=== PATIENT | female | born 1935 | race Caucasian/White ===

== ENCOUNTER 2018-01-05 21:56 | Emergency (ER) | payer OTHER ==
[2018-01-05 22:14] VITALS: BMI 25.4
--- NOTE | 2018-01-05 22:18 | PDOC ---
Attending Attestation - Resident Resident Name: Baldemar Shrestha - ED Attending Attestation I have performed the following: I have examined & evaluated the patient, The case was reviewed & discussed with the resident, I agree w/resident's findings & plan - HPI HPI: 01/05/18 22:51 The patient is a 82 year old female, with a significant past medical history of HTN, who presents to the emergency department s/p fall with, altered mental status. As per patients , he was in the basement when he heard his fall. Upon his arrival, she was altered and had a laceration to the forehead. He is unaware what she was doing at the time. The history is limited due to the patients clinical condition. Allergies: NKA - Physicial Exam PE: 01/05/18 22:56 +GENERAL: Awake, alert, and fully oriented, in no acute distress. Incontinent at bedside. +HEAD: Laceration to the forehead. +EYES: Pupils nonreactive. Blinking. NECK: Normal ROM, supple, no lymphadenopathy, JVD, or masses LUNGS: Breath sounds equal, clear to auscultation bilaterally. No wheezes, and no crackles HEART: Regular rate and rhythm, normal S1 and S2, no murmurs, rubs or gallops +ABDOMEN: Flat. Soft, nontender, normoactive bowel sounds. No guarding, no rebound. No masses EXTREMITIES: No edema. No clubbing or cyanosis. No cords, erythema, or tenderness +NEUROLOGICAL: Altered. ANO x0. - Medical Decision Making 01/05/18 23:[address] Tom Duarte, neurosurgeon electrical contacts adjuster, awaiting call back. 01/05/18 23:[address] Duarte, case discussed with resident. 11:20pm Call placed to [facility] for transfer. <Belle Barraza - Last Filed: 01/05/18 23:24> - Medical Decision Making 01/05/18 22:47 Pt comes with fall and altered MS. was in the basement and he heard the thud. Pt was slurring her speech. Pt had a seizure in the ER, sent directly for head CT, and found to have a posterior hemorrhage. EXAM: CT HEAD CT (STROKE) HISTORY: Stroke protocol COMPARISON: None. FINDINGS: Study is positive for intracranial bleed. There is a 3.9 x 2.8 x 1.9 cm hematoma in the right cerebellum with some surrounding edema. There is extension into the fourth ventricle cerebral aqueduct, third ventricle, and lateral ventricles. There is some extension into the posterior fossa subarachnoid space. There is some effacement of the extra-axial CSF spaces in the posterior fossa. Ventricles are mildly distended. There is no calvarial fracture. Paranasal sinuses appear normal IMPRESSION: Hematoma in the right posterior fossa with intraventricular and subarachnoid extension Individualized dose optimization techniques were used for this CT. THIS DOCUMENT HAS BEEN ELECTRONICALLY SIGNED 01/05/18 23:18 Our neurosurgeon is aware and he is requesting that we send him to [facility]. I called the transfer ctr and am awaiting the neuro electrical contacts adjuster doc. 01/05/18 23:44 [facility] neurologist on stroke call agrees to the transfer. I spoke to neurologist Dr. Vuong I am awaiting a call back from the [facility] ER attending. 01/05/18 23:47 Pt will be transferred to [facility] ER. 01/05/18 23:47 Nicardipine 2.5mg/hr drip is running to keep pt's systolic BP in the 140-150 range. 01/06/18 00:12 Dr. Ramsay is aware of the patient. He is the [place] attending. <Antoinette Jacome - Last Filed: 01/06/18 00:13> Attestations - Attestations 01/05/18 22:51 Documentation prepared by Belle Barraza, acting as certified medical coder for Antoinette Jacome MD. <Belle Barraza - Last Filed: 01/05/18 23:24>
--- NOTE | 2018-01-05 22:33 | PDOC ---
History of Present Illness - General Chief Complaint: Laceration Stated Complaint: FALL Time Seen by Provider: 01/05/18 22:00 - History of Present Illness Initial Comments: 01/06/18 00:41 Pt is an 82 y/o lady with a significant past medical history of chronic hypertension. Pt presents to [facility] s/p fall this afternoon in her home. Pt was stated to be cleaning her home when her who was in the basement heard a loud sound. Pt's states he saw his spouse bleeding profusely from her forehead s/p fall. After the fall, pt's endorses that pt was having slurred speech and was incoherent. Pt's states pt's BP was 170's systolic and 90's diastolic. Pt was subsequently BIBA to [facility]. Son was called on phone as well to help assist in explaining situation. Family denies any previous episodes of similar events. Past History - Past Medical History Allergies/Adverse Reactions: Allergies Allergy/AdvReac Type Severity Reaction Status Date / Time No Known Allergies Allergy Verified 01/05/18 22:11 COPD: No HTN: Yes - Suicide/Smoking/Psychosocial Hx Smoking History: Never smoked Have you smoked in the past 12 months: No Information on smoking cessation initiated: No Hx Alcohol Use: No Drug/Substance Use Hx: No Substance Use Type: None Review of Systems - Review of Systems Able to Perform ROS?: No (Pt obtunded) Is the patient limited Urdu proficient: Yes *Physical Exam - Vital Signs Last Vital Signs Temp Pulse Resp BP Pulse Ox 97.8 F 69 20 181/102 97 01/05/18 22:11 01/05/18 22:11 01/05/18 22:11 01/05/18 22:11 01/05/18 22:11 - Physical Exam Comments: 01/06/18 00:49 +GENERAL: Obtunded. at bedside. +HEAD: Laceration forehead s/p fall +EYES: Pupils nonreactive. Blinking. LUNGS: CTA B/L HEART: RRR S1 S2 No MRG +ABDOMEN: NT, ND, No HSM EXTREMITIES: No CCE +NEUROLOGICAL: Unresponsive, obtunded. ED Treatment Course - LABORATORY CBC & Chemistry Diagram: 01/05/18 23:11 01/05/18 23:11 - RADIOLOGY Radiology Studies Ordered: 01/06/18 00:46 HISTORY: Stroke protocol COMPARISON: None. FINDINGS: Study is positive for intracranial bleed. There is a 3.9 x 2.8 x 1.9 cm hematoma in the right cerebellum with some surrounding edema. There is extension into the fourth ventricle cerebral aqueduct, third ventricle, and lateral ventricles. There is some extension into the posterior fossa subarachnoid space. There is some effacement of the extra-axial CSF spaces in the posterior fossa. Ventricles are mildly distended. There is no calvarial fracture. Paranasal sinuses appear normal IMPRESSION: Hematoma in the right posterior fossa with intraventricular and subarachnoid extension Individualized dose optimization techniques were used for this CT. THIS DOCUMENT HAS BEEN ELECTRONICALLY SIGNED Medical Decision Making - Medical Decision Making 01/06/18 00:[address] Tom Alberts, Neurosurgeon. Informed him of pt's intracranial bleed. Advised for us to transfer pt to [facility] for possible Endovascular procedure. 01/06/18 00:46 Nicardipine 2.5mg/hr drip is running to keep pt's systolic BP in the 140-150 range. [facility] has accepted pt for transfer. *DC/Admit/Observation/Transfer Diagnosis at time of Disposition: Stroke - Referrals - Patient Instructions - Post Discharge Activity
[2018-01-05] MEDS ORDERED: levETIRAcetam 500 MG/5 ML INJECTION VIAL IVPB ONE ×2 (22:59→23:00)
[2018-01-05] MEDS ORDERED: DIPHTH,PERTUSS(ACELL),TET 0.5 ML DISP.SYRIN IM ONE (23:10)
[2018-01-05] MEDS ORDERED: NICARDIPINE 25 MG in DEXTROSE 5%-WATER - 240 ML IVPB SCH (23:15)
[2018-01-05] MEDS ORDERED: dilTIAZem HCL 125 MG/25 ML - 25 ML VIAL ONE (23:26)
[2018-01-05 23:37] LABS: BASO % 0.2 % (0-2.0); EOS % 0.1 % (0-4.5); HEMATOCRIT 38.7 % (32.4-45.2); HEMOGLOBIN 13.3 GM/dL (10.7-15.3); LYMPH % 4.2 % (8-40); MCH 30.6 pg (25.7-33.7); MCHC 34.4 g/dl (32.0-36.0); MEAN CELL VOLUME 88.9 fl (80-96); MEAN PLT VOLUME 8.4 fl (7.5-11.1); MONO % 2.2 % (3.8-10.2); NEUT % 93.3 % (42.8-82.8); PLATELET COUNT 222 K/MM3 (134-434); RBC 4.35 M/mm3 (3.60-5.2); RDW 14.7 % (11.6-15.6); WHITE BLOOD COUNT 13.7 K/mm3 (4.0-10.0)
[2018-01-05 23:49] LABS: INR 1.04 (0.83-1.09); PROTHROMBIN TIME (PATIENT) 11.7 SEC (9.7-13.0)
[2018-01-05 23:56] LABS: ALBUMIN 3.7 g/dl (3.4-5.0); ANION GAP 8 MMOL/L (8-16); BLOOD UREA NITROGEN 18 mg/dL (7-18); CHLORIDE 101 mmol/L (98-107); CO2 29 mmol/L (21-32); GLUCOSE,RANDOM 139 mg/dL (74-106); SGPT/ALT 24 U/L (13-61); SODIUM 138 mmol/L (136-145)
[2018-01-05 23:59] LABS: ALK PHOS 82 U/L (45-117); BILIRUBIN,TOTAL 0.6 mg/dL (0.2-1.0); CREATININE 0.7 mg/dL (0.55-1.3); TOT PROT 7.5 g/dl (6.4-8.2)
[2018-01-06 00:01] LABS: POTASSIUM 4.2 mmol/L (3.5-5.1); SGOT/AST 37 U/L (15-37)
[2018-01-06 00:36] VITALS: TEMP 98
[2018-01-06 00:40] VITALS: BP 170/109; PULSE 69
[2018-01-06 01:25] LABS: ANISOCYTOSIS 1+; MACROCYTOSIS 1+; PLATELET ESTIMATE NORMAL
--- NOTE | 2018-01-07 21:50 | EKG ---
Test Reason : Blood Pressure : / mmHG Vent. Rate : 069 BPM Atrial Rate : 069 BPM P-R Int : 148 ms QRS Dur : 096 ms QT Int : 450 ms P-R-T Axes : 043 -60 026 degrees QTc Int : 482 ms NORMAL SINUS RHYTHM WITH SINUS ARRHYTHMIA POSSIBLE LEFT ATRIAL ENLARGEMENT LEFT ANTERIOR FASCICULAR BLOCK LEFT VENTRICULAR HYPERTROPHY PROLONGED QT ABNORMAL ECG WHEN COMPARED WITH ECG OF 09-FEB-2011 09:45, SIGNIFICANT CHANGES HAVE OCCURRED Confirmed by KAREN QUIÑONES MD ([id number]) on 01/07/2018 9:50:11 PM Referred By: Confirmed By:KAREN QUIÑONES MD
== END 2018-01-06 01:04 | disposition short-term general hospital (02) ==
LOC: JER 21:56
PROC: 3E033GC Introduction of Other Therapeutic Substance into Peripheral Vein, Percutaneous Approach (ICD-10-PCS; principal; 2018-01-05)
DX: I63.9 Cerebral infarction, unspecified (principal); I61.8 Other nontraumatic intracerebral hemorrhage; R47.81 Slurred speech; I10 Essential (primary) hypertension; S01.81XA Laceration without foreign body of other part of head, initial encounter; W18.39XA Other fall on same level, initial encounter; Y93.E9 Activity, other interior property and clothing maintenance; Y92.018 Other place in single-family (private) house as the place of occurrence of the external cause; Y99.8 Other external cause status
CPT/HCPCS: 36415; 70450-TC; 71045-TC-FY; 80053; 85025; 85610; 85730; 93005; 93010; 96365; 96366; 96375; 99283-25